=== PATIENT | male | born 1960 | race Caucasian/White ===

== ENCOUNTER 2020-04-28 10:27 | Outpatient (CLI) | payer BC, SELFPAY ==
--- NOTE | ~2020-04-28 | XR_ITS ---
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 Pain. TECHNIQUE: AP and bilateral oblique views COMPARISON: None FINDINGS: No fracture or dislocation, erosive change, degenerative spurring or ankylosis. No pelvic o r sacral fracture or bone destruction is evident. IMPRESSION: Negative Reviewed, dictated and finalized at [facility] Reviewed, dictated and finalized at [facility] IMPRESSION: Negative
--- NOTE | ~2020-04-28 | XR_ITS ---
EXAMINATION: XR hand BI arthritis min 3V DATE: 04/28/2020 11:02 INDICATION: Unspecified osteoarthritis. TECHNIQUE: 4 views of right hand and 4 views of left hand on 7 radiographs were obtained. COMPARISON: None. FINDINGS: RIGHT HAND: There is 5 mm positive ulnar variance. Partially visualized is a likely old healed fractu re of right radial diaphysis. There is an old healed fracture of neck of fifth metacarpal. No acute f racture. 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 There is remodeling of lunate a nd distal ulna, consistent with ulnolunate impaction syndrome. There is mild osteoarthritis of first carpometacarpal joint. There is severe osteoarthritis of first, second, and third metacarpophalangeal joints and mild osteoarthritis of fourth and fifth metacarpophalangeal joints. There is mild osteoar thritis of most of the interphalangeal joints. LEFT HAND: Bone alignment is normal. No fracture. There is mild osteoarthritis of distal radioulnar j oint and triscaphe joint. There is moderate osteoarthritis of first carpometacarpal joint. There is s evere osteoarthritis of first, second, and third metacarpophalangeal joints and mild osteoarthritis o f most of the interphalangeal joints. There is moderate osteoarthritis of second distal interphalange al joint and fourth proximal interphalangeal joint. IMPRESSION: 1. Polyarticular osteoarthritis. Reviewed, dictated and finalized at [facility]. HAND
[2020-04-28 11:18] LABS: Hematocrit 42.1 % (42.0-52.0); Hemoglobin 14.5 g/dL (14.0-18.0); Mean Corpuscular HGB Conc 34.4 g/dl (32-36); Mean Corpuscular Hemoglobin 29.6 pg (26-34); Mean Corpuscular Volume 85.9 fl (80-100); Mean Platelet Volume 10.4 fl (7.4-10.4); Platelet Count Result 250 k/mm3 (150-375); Red Cell Distribution Width 11.9 % (11.5-14.5); White Blood Count 5.6 K/mm3 (4.5-10.0)
[2020-04-28 11:35] LABS: Rheumatoid Factor < 8.6 IU/ML (<12)
[2020-04-28 11:36] LABS: Alanine Aminotransferase 33 U/L (4-50); Albumin Level 4.5 g/dL (3.5-5.1); Alkaline Phosphatase 65 U/L (38-126); Anion Gap 4 mmol/L (8-16); Aspartate Amino Transferase 23 U/L (17-59); Bilirubin,Total 0.9 mg/dL (0.2-1.3); Blood Urea Nitrogen 17 mg/dL (9-20); CRP < 0.5 mg/dL (<1.0); Calcium 9.2 mg/dL (8.4-10.2); Carbon Dioxide 30 mmol/L (22-30); Chloride 104 mmol/L (98-107); Estimated Glomerular Filt Rate > 60; Glucose 105 mg/dL (75-110); Sodium 138 mmol/L (137-145); Uric Acid 4.8 mg/dL (3.5-8.5)
[2020-04-28 11:53] LABS: Erythrocyte Sedimentation Rate 16 mm/hr (0-20)
[2020-04-28 12:21] LABS: Vitamin D 25 Hydroxy 25.8 ng/mL
[2020-04-30 19:47] LABS: SS-A <1.0; SS-B <1.0
[2020-05-01 09:38] LABS: SM Antibody <1.0; SM/RNP Antibody <1.0
[2020-05-01 21:48] LABS: Anti Cyclic Citrullinated Pept 17 Units (<20)
== END 2020-04-28 10:28 | disposition home or self-care (01) ==
PROVIDERS: PCP Internal Medicine; Visit Provider Internal Medicine
DX: M19.90 Unspecified osteoarthritis, unspecified site (principal); M47.816 Spondylosis without myelopathy or radiculopathy, lumbar region; M19.041 Primary osteoarthritis, right hand; M19.042 Primary osteoarthritis, left hand
CPT/HCPCS: 36415; 72202; 73130; 80053; 82306; 84550; 85027; 85652; 86038; 86140; 86200; 86225; 86235; 86430